=== PATIENT | male | born 1990 | race Caucasian/White ===

== ENCOUNTER 2023-12-18 02:49 | Emergency (ER) | payer SELFPAY ==
[~2023-12-18] VITALS: Ht 172.7 cm; Wt 72.7 kg
[2023-12-18 03:00] VITALS: TEMP 98.3
[2023-12-18 04:00] VITALS: BP 128/80; PULSE 75
== END 2023-12-18 04:00 | disposition home or self-care (01) ==
LOC: COL.ER 02:49
DX: S03.2XXA Dislocation of tooth, initial encounter (principal); K02.9 Dental caries, unspecified; F17.210 Nicotine dependence, cigarettes, uncomplicated; X58.XXXA Exposure to other specified factors, initial encounter

== ENCOUNTER 2024-07-31 16:52 | Emergency (ER) | payer MEDICAID ==
[~2024-07-31] VITALS: Ht 180.3 cm; Wt 106.8 kg
[2024-07-31 17:16] VITALS: BP 115/86; PULSE 96; TEMP 97.8
[2024-07-31] MEDS ORDERED: Ketorolac 30 MG/ML VIAL IM ONE (18:30)
[2024-07-31] MEDS ORDERED: FLEXERIL 1010 MG/TAB PO (19:24)
[2024-07-31] MEDS ORDERED: Home HYDROcodone/Acetaminophen 5/325 MG #4 TABS/PACK PO ONE (19:30)
== END 2024-07-31 19:32 | disposition home or self-care (01) ==
LOC: COL.ER 16:52
DX: M54.50 Low back pain, unspecified (principal); F17.290 Nicotine dependence, other tobacco product, uncomplicated
CPT/HCPCS: J1885; J2360

== ENCOUNTER → 2024-11-01 | Outpatient (CLI) | payer MEDICAID ==
[~2024-11-01] MED LIST: FLEXERIL 1010 MG/TAB PO
== END ==
LOC: MHCPAIN 11:17
DX: M54.16 Radiculopathy, lumbar region (principal); M47.896 Other spondylosis, lumbar region; G89.29 Other chronic pain
CPT/HCPCS: G0463